=== PATIENT | male | born 1980 | race Caucasian/White ===

== ENCOUNTER 2019-05-22 19:21 | Emergency (ER) | payer BC, SELFPAY ==
[~2019-05-22] VITALS: Ht 175.3 cm; Wt 68.2 kg
[~2019-05-22 19:21] MED LIST: SALI0.6528
[2019-05-22] MEDS ORDERED: SUMA100T2 (19:34)
[2019-05-22] MEDS ORDERED: AMIT25TA (19:34)
[2019-05-22] MEDS ORDERED: TETRACAINE 0.5% OPHTH SOLN 4ML OS ONE (20:00)
[2019-05-22] MEDS ORDERED: FLUORESCEIN OPHTH 1 MG STRIP OS ONE (20:00)
[2019-05-22] MEDS ORDERED: ADACEL/BOOSTRIX VACCINE (DIPHTH/PERTUSS/ACELL/TETANUS)0.5ML SYR (90715) IM ONE (20:15)
[2019-05-22 20:45] VITALS: BP 118/61
[2019-05-22] MEDS ORDERED: OFLOXACIN 0.3 % (OCUFLOX) OPTH SOL 5ML OS SCH (21:00)
== END 2019-05-22 20:56 | disposition home or self-care (01) ==
LOC: M ED 19:21
DX: T15.02XA Foreign body in cornea, left eye, initial encounter (principal); Y92.9 Unspecified place or not applicable; Y93.9 Activity, unspecified; G43.909 Migraine, unspecified, not intractable, without status migrainosus; Z79.899 Other long term (current) drug therapy

== ENCOUNTER 2023-01-26 21:00 | Emergency (ER) | payer OTHER ==
[~2023-01-26 21:00] MED LIST changes: +AMIT25TA17; +SUMA100T2
[2023-01-26 21:28] LABS: BASO # 0.1 10^3/uL (0.0-0.2); BASO % 0.8 % (0.0-1.0); EOS # 0.2 10^3/uL (0.0-0.5); EOS % 2.9 % (0.0-3.0); HEMATOCRIT 40.9 % (42.0-52.0); LYMPH # 2.2 10^3/uL (1.5-5.0); MEAN CORPUSCULAR HEMOGLOBIN 30.7 pg (27.0-33.0); MEAN CORPUSCULAR HGB CONC 34.2 g/dl (32.0-36.5); MEAN CORPUSCULAR VOLUME 89.7 fl (80.0-96.0); MONO # 0.8 10^3/uL (0.0-0.8); MONO % 9.7 % (2.0-8.0); NEUTROPHILS % 60.2 % (36.0-66.0); PLATELET COUNT, AUTOMATED 313 10^3/uL (150-450); RED BLOOD COUNT 4.56 10^6/uL (4.30-6.10); WHITE BLOOD COUNT 8.4 10^3/uL (4.0-10.0)
[2023-01-26 21:43] LABS: INR 0.97; PROTHROMBIN TIME 13.1 SECONDS (12.5-14.5)
[2023-01-26 21:54] LABS: CK-MB VALUE MASS < 1.0 NG/ML (<3.6)
[2023-01-26 22:07] LABS: BLOOD UREA NITROGEN 16 MG/DL (9-23); CALCIUM LEVEL 8.6 MG/DL (8.5-10.1); CARBON DIOXIDE LEVEL 30 MMOL/L (20-31); CHLORIDE LEVEL 100 MMOL/L (98-107); CREATININE FOR GFR 0.78 MG/DL (0.70-1.30); GLOMERULAR FILTRATION RATE > 60.0 (>60); GLUCOSE, FASTING 146 MG/DL (60-100); MAGNESIUM LEVEL 1.7 MG/DL (1.8-2.4); POTASSIUM SERUM 3.3 MMOL/L (3.5-5.1); SODIUM LEVEL 137 MMOL/L (136-145)
[2023-01-26 22:10] LABS: CPK CREATINE PHOSPHOKINASE 96 U/L (46-171); MB/CK RELATIVE INDEX 1.04 (< OR =4)
[2023-01-26 23:14] LABS: CK-MB VALUE MASS 1.5 NG/ML (<3.6)
[2023-01-26] MEDS ORDERED: MAG SULF 1GM/100ML (MAG RUN) 1 GM in IV 1 EA IV ONE (23:15)
[2023-01-26] MEDS ORDERED: POTASSIUM CHLORIDE 10MEQ SR TABLET PO ONE (23:15)
[2023-01-26 23:18] LABS: CPK CREATINE PHOSPHOKINASE 97 U/L (46-171); MB/CK RELATIVE INDEX 1.54 (< OR =4)
[2023-01-26] MEDS ORDERED: MAGN400T2 PO (23:23)
[2023-01-26] MEDS ORDERED: POTA-151 PO (23:23)
[2023-01-27 00:45] VITALS: BP 127/70
== END 2023-01-27 01:01 | disposition home or self-care (01) ==
LOC: M ED 21:00
DX: E83.42 Hypomagnesemia (principal); E87.6 Hypokalemia; R00.2 Palpitations; F41.9 Anxiety disorder, unspecified
CPT/HCPCS: 71045; 80048; 82550; 82553; 83735; 83880; 85025; 85610; 93005; 93041; 94760; 96365; 99285; J3475